=== PATIENT | female | born 1945 | race Caucasian/White ===

== ENCOUNTER 2017-08-19 07:57 | Outpatient (CLI) | payer MEDICARE ==
[~2017-08-19 07:57] MED LIST: ACETAMINOPHEN 325 MG TABLET PO PRN; DIPHENHYDRAMINE HCL 25 MG CAPSULE PO PRN; IRON DEXTRAN COMPLEX 25 MG in SYRINGE, DISPOSABLE, 1 EACH IV PRN; IRON DEXTRAN COMPLEX 975 MG in NORMAL SALINE 1000 ML 1,000 ML IV PRN; NORMAL SALINE 250 ML IV PRN
[2017-08-19] MEDS ORDERED: METHYLPREDNISOLONE INJ 125 MG/2 ML SDV ONE (09:55)
[2017-08-19 10:44] VITALS: BP 144/61
[2017-08-19] MEDS ORDERED: EPINEPHRINE INJ 1 MG/10 ML DISP.SYRIN ONE (14:11)
== END 2017-08-19 09:55 | disposition short-term general hospital (02) ==
LOC: II 07:57 → 5TH 08:00 → II 09:55
PROVIDERS: ATTEND Internal Medicine
PROC: 3E033GC Introduction of Other Therapeutic Substance into Peripheral Vein, Percutaneous Approach (ICD-10-PCS; principal; 2017-08-19)
PROC: 3E033XZ Introduction of Vasopressor into Peripheral Vein, Percutaneous Approach (ICD-10-PCS; 2017-08-19)
PROC: 3E0333Z Introduction of Anti-inflammatory into Peripheral Vein, Percutaneous Approach (ICD-10-PCS; 2017-08-19)
PROC: 5A12012 Performance of Cardiac Output, Single, Manual (ICD-10-PCS; 2017-08-19)
DX: Z76.89 Persons encountering health services in other specified circumstances (principal)
CPT/HCPCS: 96374; 96375; A9270; J0171; J1750; J2930; J3490; 92950; J7030

== ENCOUNTER 2017-08-19 10:05 | Observation (INO) | payer MEDICARE ==
[2017-08-19] MEDS ORDERED: FAMOTIDINE INJ/PF 20 MG/2 ML SDV IV ONE (10:08)
[2017-08-19] MEDS ORDERED: ONDANSETRON HCL INJ/PF 4 MG/2 ML SDV ONE (10:08)
--- NOTE | 2017-08-19 10:16 | ER Document Report ---
ED General - General Stated Complaint: CODE Notes: 71-year-old female with a history of anaphylaxis to multiple substances including different formulations of intravenous iron presents after having an anaphylactic reaction followed by a pulseless electrical activity cardiac arrest on the floor. She got Benadryl 25 mg followed by a test dose of 0.25 mL' s of IV iron in the outpatient infusion center. This resulted in rash hives hypotension unresponsive listens pulselessness. ERNESTO WRIGHT was called she received 1 round of ACLS with 1 mg of intravenous epinephrine, a few minutes of chest compressions and assisted ventilation after which he regained a pulse and consciousness immediately. She complains only of nausea now. She was also given steroids. TRAVEL OUTSIDE OF THE [place] IN LAST 30 DAYS: No - Related Data Allergies/Adverse Reactions: acetaminophen [From Tylenol] Allergy (Verified 08/19/17 08:35) Home Medications: Current Home Medications Metoprolol Tartrate 50 mg PO PRN PRN 08/19/17 [History] Oxycodone HCl 5 mg PO PRN PRN 08/19/17 [History] Prednisone 10 mg PO PRN PRN 08/19/17 [History] Ropinirole HCl [Requip] 5 mg PO QPM 08/19/17 [History] Past Medical History - Social History Smoking Status: Never Smoker Family History: None Review of Systems - Review of Systems Notes: REVIEW OF SYSTEMS GEN: Denies fever, chills, weight loss ENT: Denies sore throat, nasal discharge, ear pain EYES: Denies blurry vision, eye pain, discharge CV: Denies chest pain, palpitations, edema RESP: Denies cough, shortness of breath, wheezing GI: Nausea MSK: Denies joint pain/swelling, edema, SKIN: Denies rash, skin lesions LYMPH: Denies swollen glands/lymph nodes NEURO: Denies headache, focal weakness or numbness, dizziness PSYCH: Denies depression, suicidal or homicidal ideation PHYSICAL EXAMINATION General: In acute distress, tremulous Head: Atraumatic, normocephalic ENT: Mouth normal, oropharynx moist, no exudates or tonsillar enlargement. No swelling of the intraoral structures or neck. No stridor. Normal voice. Eyes: Conjunctiva normal, pupils equal, lids normal Neck: No JVD, supple, no guarding CVS: Normal rate, regular rhythm, no murmurs Resp: Hyperkinetic, good air movement, normal saturation, slightly tachypneic but clear lungs. GI: Nondistended, soft, no tenderness to palpation, no rebound or guarding Ext: No deformities, no edema, normal range of motion in upper and lower ext Back: No CVA or midline TTP Skin: No rash, warm Lymphatic: No lymphadeopathy noted Neuro: Awake, alert. Face symmetric. GCS 15. Physical Exam - Vital signs Vitals: Resp Pulse Ox 23 H 90 L 08/19/17 10:12 08/19/17 10:12 Course - Re-evaluation Re-evalutation: 08/19/17 10:13 71-year-old female presents after anaphylactic reaction leading to PEA arrest. Given her exam now I suspect this was due to hypotension and vasodilation rather than upper airway obstruction given that she has no signs at this time of upper airway obstruction. She has been given everything for anaphylaxis in terms of medications except for Pepcid which I will give. Zofran for nausea. We will check labs to rule out severe anemia or lateral abdomen allergies. She has no chest pain so I do not think a troponin is needed especially if her EKG is normal. We will do a chest x-ray to rule out significant thoracic trauma. Will observe quite carefully in the ED for repeat dosing of epinephrine. Will admit for observation. 08/19/17 10:16 Discussed with patient's family her condition and the plan of care. 08/19/17 10:30 Reassessed at 10:30 AM. Not having chest pain, looks much better. Vitals normal. Spoke with Dr. Conde who will admit. Checking chest x-ray to rule out thoracic trauma and basic labs. 08/19/17 11:41 Reassessed at 11:40 AM. Feeling well. Chest x-ray shows faint left pleural effusion but no obvious thoracic trauma. This could be pre-existing or represent a small traumatic hemothorax, either way patient will not require any interventions given her stability and normal saturation with no chest pain. Labs show expected leukocytosis. EKG is normal. - Vital Signs Vital signs: Temp Pulse Resp BP Pulse Ox 17 106/48 L 100 08/19/17 11:01 08/19/17 11:01 08/19/17 11:01 - Laboratory Result Diagrams: 08/19/17 10:26 12/07/17 10:26 Laboratory results interpreted by me: 08/19/17 08/19/17 10:26 10:26 WBC 14.4 H Hgb 9.3 L Hct 30.4 L MCV 71 L MCH 21.6 L MCHC 30.5 L RDW 27.9 H Plt Count 135 L Monocytes % 1.4 L Absolute Neutrophils 11.2 H Potassium 3.3 L Chloride 111 H Carbon Dioxide 20 L Calcium 8.2 L - Diagnostic Test Radiology reviewed: Image reviewed, Reports reviewed - EKG Interpretation by Me EKG shows normal: Sinus rhythm Rate: Tachycardia Rhythm: NSR - No ST or T-wave changes Critical Care Note - Critical Care Note Total time excluding time spent on procedures (mins): 32 Comments: The above patient is critically ill. Not including procedures, but including direct re-evaluations, speaking with patient and/or consultants, interpreting results, and documenting, I spent the total amount of minute listed listed above on critical care time Discharge - Discharge Clinical Impression: Pulseless electrical activity Anaphylactic reaction Qualifiers: Encounter type: initial encounter Qualified Code(s): T78.2XXA - Anaphylactic shock, unspecified, initial encounter Condition: Fair Disposition: ADMITTED INPATIENT Admitting Provider: Hospitalist Unit Admitted: Telemetry
[2017-08-19 10:42] LABS: ABSOLUTE EOSINOPHILS # (AUTO) 0.1 10^3/uL (0.0-0.6); ABSOLUTE MONOCYTES (AUTO) 0.2 10^3/uL (0.1-1.4); EOSINOPHILS % (AUTO) 0.7 % (0-6); HEMOGLOBIN 9.3 g/dL (12.0-15.5); RED BLOOD COUNT 4.29 10^6/uL (3.72-5.28); WHITE BLOOD COUNT 14.4 10^3/uL (4.0-10.5)
--- NOTE | 2017-08-19 10:44 | RADIOLOGY REPORT (SQ) ---
EXAM DESCRIPTION: CHEST SINGLE VIEW COMPLETED DATE/TIME: 08/19/2017 10:34 am REASON FOR STUDY: CPR, r/o rib fx, contusion COMPARISON: None. EXAM PARAMETERS: NUMBER OF VIEWS: One view. TECHNIQUE: Single frontal radiographic view of the chest acquired. RADIATION DOSE: NA LIMITATIONS: None. FINDINGS: LUNGS AND PLEURA: Indistinct appearance of the left hemidiaphragm with probable small left pleural effusion. No pneumothorax. MEDIASTINUM AND HILAR STRUCTURES: No masses. Contour normal. HEART AND VASCULAR STRUCTURES: Heart normal in size. Normal vasculature. BONES: No acute findings. HARDWARE: None in the chest. OTHER: No other significant finding. IMPRESSION: FAINT LEFT BASILAR ATELECTASIS WITH PROBABLE SMALL LEFT PLEURAL EFFUSION. TECHNICAL DOCUMENTATION: JOB ID: [id number]- All Rights Reserved
[2017-08-19 10:49] LABS: ABSOLUTE BASOPHILS # (AUTO) 0.1 10^3/uL (0.0-0.2); ABSOLUTE LYMPHOCYTES (AUTO) 2.7 10^3/uL (0.5-4.7); ABSOLUTE NEUT (AUTO) 11.2 10^3/uL (1.7-8.2); BASOPHILS % (AUTO) 0.9 % (0-2); HEMATOCRIT 30.4 % (36.0-47.0); HGB HCT DIFFERENCE -2.5; LYMPHOCYTES % (AUTO) 19.1 % (13-45); MEAN CORPUSCULAR HEMOGLOBIN 21.6 pg (27.0-33.4); MEAN CORPUSCULAR HGB CONC 30.5 g/dL (32.0-36.0); MEAN CORPUSCULAR VOLUME 71 fl (80-97); MONOCYTES % (AUTO) 1.4 % (3-13); RED CELL DISTRIBUTION WIDTH 27.9 % (11.5-14.0); SEGMENTED NEUTROPHILS % (AUTO) 77.9 % (42-78)
[2017-08-19 10:55] LABS: ANION GAP 11 (5-19); BLOOD UREA NITROGEN 10 mg/dL (7-20); CALCIUM 8.2 mg/dL (8.4-10.2); CARBON DIOXIDE 20 mmol/L (22-30); CHLORIDE 111 mmol/L (98-107); CREATININE RESULT 0.74 mg/dL (0.52-1.25); GLUCOSE 102 mg/dL (75-110); POTASSIUM 3.3 mmol/L (3.6-5.0); SODIUM 141.9 mmol/L (137-145)
[2017-08-19 11:15] LABS: ANISOCYTOSIS 3+; MICROCYTOSIS 2+; POLYCHROMASIA 1+; TOXIC GRANULATION 1+
[2017-08-19] MEDS ORDERED: MAG HYDROX/AL HYDROX/SIMETH SUSP 30 ML UDCUP PO PRN (11:34)
[2017-08-19] MEDS ORDERED: ALBUTEROL SULFATE 0.083% NEB 2.5 MG/3 ML AMPUL NEB PRN (11:34)
[2017-08-19] MEDS ORDERED: EPINEPHRINE INJ/PF 1 MG/1 ML AMPULE ONE (11:44)
[2017-08-19] MEDS ORDERED: ENOXAPARIN SODIUM INJ 40 MG/0.4 ML DISP.SYRIN SUBCUT ONE (12:30)
[2017-08-19] MEDS ORDERED: DIPHENHYDRAMINE HCL 25 MG CAPSULE PO ONE (12:30)
--- NOTE | 2017-08-19 12:30 | EKG REPORT ---
SEVERITY:- OTHERWISE NORMAL ECG - SINUS TACHYCARDIA : Confirmed by: Elyse Price 19-Aug-2017 12:29:53
--- NOTE | 2017-08-19 12:31 | PDOC H&P ---
History of Present Illness Admission Date/PCP: 08/19/17 10:36 Patient complains of: Shortness of breath History of Present Illness: STEPH FIGUEROA is a 71 year old female with a past medical history significant for anemia, rheumatoid arthritis, chronic pain, and restless leg syndrome. The patient was in our outpatient chemotherapy suite receiving a test dose of iron dextrose when she developed an anaphylactic reaction with a brief loss of consciousness and nonpalpable pulse. A CODE BLUE was called and the patient received chest compressions, epinephrine, Solu-Medrol, and Benadryl. She regained a pulse and consciousness immediately. At this time she reports feeling chilled and shaky. She is referred to the hospitalist service for observation. Past Medical History Medical History: None Cardiac Medical History: Reports: Heart Murmur Pulmonary Medical History: Reports: None EENT Medical History: Reports: None Neurological Medical History: Reports: None Endocrine Medical History: Reports: None Renal/ Medical History: Reports: None Malignancy Medical History: Reports: None GI Medical History: Reports: None Musculoskeltal Medical History: Reports: Arthritis Skin Medical History: Reports: None Psychiatric Medical History: Reports: None Traumatic Medical History: Reports: None Hematology: Reports: Anemia Past Surgical History Past Surgical History: Reports: Appendectomy, Hysterectomy Social History Information Source: Patient Lives with: Spouse/Significant other Smoking Status: Never Smoker Frequency of Alcohol Use: None Hx Recreational Drug Use: No Hx Prescription Drug Abuse: No - Advance Directive Resuscitation Status: Full Code Family History Family History: None Parental Family History Reviewed: Yes Children Family History Reviewed: Yes Sibling(s) Family History Reviewed.: Yes Medication/Allergy Home Medications: Metoprolol Tartrate 50 mg PO PRN PRN 08/19/17 Oxycodone HCl 5 mg PO PRN PRN 08/19/17 Prednisone 10 mg PO PRN PRN 08/19/17 Ropinirole HCl [Requip] 5 mg PO QPM 08/19/17 Allergies/Adverse Reactions: acetaminophen [From Tylenol] Allergy (Verified 08/19/17 08:35) iron dextran complex Allergy (Verified 08/19/17 12:17) Review of Systems Constitutional: PRESENT: chills. ABSENT: fever(s), headache(s), weight gain, weight loss Eyes: ABSENT: visual disturbances Ears: ABSENT: hearing changes Cardiovascular: ABSENT: chest pain, dyspnea on exertion, edema, orthropnea, palpitations Respiratory: ABSENT: cough, hemoptysis Gastrointestinal: ABSENT: abdominal pain, constipation, diarrhea, hematemesis, hematochezia, nausea, vomiting Genitourinary: ABSENT: dysuria, hematuria Musculoskeletal: ABSENT: joint swelling Integumentary: ABSENT: rash, wounds Neurological: PRESENT: tremor(s). ABSENT: abnormal gait, abnormal speech, confusion, dizziness, focal weakness, syncope Psychiatric: ABSENT: anxiety, depression, homidical ideation, suicidal ideation Endocrine: ABSENT: cold intolerance, heat intolerance, polydipsia, polyuria Hematologic/Lymphatic: ABSENT: easy bleeding, easy bruising Physical Exam Vital Signs: Temp Pulse Resp BP Pulse Ox 15 117/50 L 98 08/19/17 11:34 08/19/17 11:34 08/19/17 11:34 Intake & Output 08/18/17 08/19/17 08/20/17 06:59 06:59 06:59 Weight 68.946 kg General appearance: PRESENT: no acute distress, well-developed, well-nourished, other - Overweight Head exam: PRESENT: atraumatic, normocephalic Eye exam: PRESENT: conjunctiva pink, EOMI, PERRLA. ABSENT: scleral icterus Ear exam: PRESENT: normal external ear exam Mouth exam: PRESENT: moist, tongue midline Neck exam: ABSENT: carotid bruit, JVD, lymphadenopathy, thyromegaly Respiratory exam: PRESENT: clear to auscultation german, symmetrical, unlabored. ABSENT: rales, rhonchi, wheezes Cardiovascular exam: PRESENT: RRR, +S1, +S2, tachycardia. ABSENT: diastolic murmur, rubs, systolic murmur Pulses: PRESENT: normal dorsalis pedis pul Vascular exam: PRESENT: normal capillary refill GI/Abdominal exam: PRESENT: normal bowel sounds, soft. ABSENT: distended, guarding, mass, organolmegaly, rebound, tenderness Rectal exam: PRESENT: deferred Extremities exam: PRESENT: full ROM. ABSENT: calf tenderness, clubbing, pedal edema Neurological exam: PRESENT: alert, awake, oriented to person, oriented to place , oriented to time, oriented to situation, CN II-XII grossly intact. ABSENT: motor sensory deficit Psychiatric exam: PRESENT: appropriate affect, normal mood. ABSENT: homicidal ideation, suicidal ideation Skin exam: PRESENT: dry, intact, warm. ABSENT: cyanosis, rash Results Impressions: Chest X-Ray 08/19/17 10:16 IMPRESSION: FAINT LEFT BASILAR ATELECTASIS WITH PROBABLE SMALL LEFT PLEURAL EFFUSION. Assessment & Plan - Diagnosis (1) Anaphylactic reaction Qualifiers: Encounter type: initial encounter Qualified Code(s): T78.2XXA - Anaphylactic shock, unspecified, initial encounter Is this a current diagnosis for this admission?: Yes Plan: Pt previously received Solumedrol 125 mg IV, Epinephrine 1 mg IV, Benadryl 25 mg p.o. she is currently hemodynamically stable with no signs of respiratory distress. The patient will be admitted for observation with continuous cardiac telemetry. She will be placed on scheduled Benadryl and Pepcid. (2) Nonpalpable pulse Is this a current diagnosis for this admission?: Yes Plan: Secondary to hypotension and vasodialation during an anaphylactic reaction. She was not on cardiac monitoring during the initial event. The patient immediately regained palpable pulse, consciousness, and maintained her own airway following administration of epinephrine and a short round of chest compressions. BP remains slightly low, though acceptable: 117/50. Will provide IVF an place patient on fall precautions. Will continue scheduled Pepcid and Benadryl. (3) Hypotension Qualifiers: Hypotension type: hypotension due to drug Qualified Code(s): I95.2 - Hypotension due to drugs Is this a current diagnosis for this admission?: Yes Plan: As above. (4) Anemia Qualifiers: Anemia type: iron deficiency Is this a current diagnosis for this admission?: Yes Plan: The patient was in our outpatient chemotherapy suite to receive test dosing of iron dextrose for anemia. She reports that she has had 3 previous blood transfusions within the last 3-4 months due to her anemia. She has been referred to Dr. Davila by her primary care provider. Hgb is current 9.3. No signs of overt bleeding. Dr. Davila has been updated on the patient's status. - Time Time Spent: 50 to 70 Minutes Medications reviewed and adjusted accordingly: Yes Anticipated discharge: Home Within: within 24 hours
[2017-08-19] MEDS: OXYCODONE HCL IR 5 MG TABLET PO PRN ×2 (13:10→19:39)
[2017-08-19] MEDS: NORMAL SALINE 1000 ML 1,000 ML IV PRN (13:11)
[2017-08-19] MEDS: DIPHENHYDRAMINE HCL 25 MG CAPSULE PO SCH (17:23)
[2017-08-19] MEDS ORDERED: ROPINIROLE HCL 2 MG TABLET PO SCH (18:00)
[2017-08-19] MEDS ORDERED: ROPINIROLE HCL 5 MG PO SCH (18:00)
[2017-08-19] MEDS: FAMOTIDINE 20 MG TABLET PO SCH (21:25)
[2017-08-19] MEDS: ONDANSETRON HCL INJ/PF 4 MG/2 ML SDV IV PRN (21:25)
[2017-08-20] MEDS: DIPHENHYDRAMINE HCL 25 MG CAPSULE PO SCH ×2 (00:11→06:28)
[2017-08-20] MEDS: NORMAL SALINE 1000 ML 1,000 ML IV PRN (02:24)
[2017-08-20] MEDS: OXYCODONE HCL IR 5 MG TABLET PO PRN (06:32)
[2017-08-20 07:31] LABS: HEMATOCRIT 23.9 % (36.0-47.0); MEAN CORPUSCULAR HEMOGLOBIN 21.4 pg (27.0-33.4); MEAN CORPUSCULAR HGB CONC 30.7 g/dL (32.0-36.0); MEAN CORPUSCULAR VOLUME 70 fl (80-97); RED BLOOD COUNT 3.43 10^6/uL (3.72-5.28); RED CELL DISTRIBUTION WIDTH 27.7 % (11.5-14.0); WHITE BLOOD COUNT 17.4 10^3/uL (4.0-10.5)
[2017-08-20 07:38] LABS: HEMOGLOBIN 7.3 g/dL (12.0-15.5)
[2017-08-20] MEDS: ONDANSETRON HCL INJ/PF 4 MG/2 ML SDV IV PRN (07:51)
[2017-08-20 07:53] LABS: ANION GAP 9 (5-19); BLOOD UREA NITROGEN 13 mg/dL (7-20); CALCIUM 7.8 mg/dL (8.4-10.2); CARBON DIOXIDE 22 mmol/L (22-30); CHLORIDE 107 mmol/L (98-107); CREATINE KINASE 31 U/L (30-135); CREATININE RESULT 0.68 mg/dL (0.52-1.25); GLUCOSE 107 mg/dL (75-110); POTASSIUM 3.9 mmol/L (3.6-5.0)
[2017-08-20] MEDS ORDERED: DIPHENHYDRAMINE HCL 25 MG CAPSULE PO PRN (09:12)
[2017-08-20] MEDS ORDERED: NORMAL SALINE 250 ML IV PRN ×2 (09:12)
[2017-08-20] MEDS ORDERED: ENOXAPARIN SODIUM INJ 40 MG/0.4 ML DISP.SYRIN SUBCUT SCH (10:00)
[2017-08-20] MEDS ORDERED: OXYCODONE HCL IR 5 MG TABLET PO PRN (10:23)
[2017-08-20] MEDS: FAMOTIDINE 20 MG TABLET PO SCH (10:39)
[2017-08-20] MEDS ORDERED: POTASSIUM CHLORIDE 10 MEQ TABLET.SA PO ONE (11:30)
--- NOTE | 2017-08-20 12:43 | PDOC DISCHARGE SUMMARY ---
General - Admit/Disc Date/PCP Admission Date/Primary Care Provider: 08/19/17 10:36 Discharge Date: 08/20/17 - Discharge Diagnosis (1) Anaphylactic reaction Is this a current diagnosis for this admission?: Yes Summary: The patient was admitted overnight for observation after an anaphylactic reaction had to iron dextrose. She was immediately treated with epinephrine, Solu-Medrol, and Benadryl with rapid improvement in her respiratory status and hypotension. She was placed on scheduled Benadryl and Pepcid overnight. She did not experience any dyspnea or hypotensive episodes overnight. The patient's design transferrer, Dr. Davila, was updated on the patient's status. The patient will follow up with Dr. Davila next week as scheduled. (2) Anemia Is this a current diagnosis for this admission?: Yes Summary: The patient was in our outpatient chemotherapy suite to receive a test dose of iron dextran for anemia when she had the anaphylactic reaction. The patient states that she has had 3 previous blood transfusions within the last 3-4 months due to her anemia. She is followed by hematology, Dr. Davila, for the same. Her hemoglobin yesterday was noted to be 9.3 and has since dropped to 7.3. Dr. Carrillo was contacted and recommended that the patient received 2 units of packed red blood cells prior to discharge today. The patient will follow up with hematology as scheduled next week. (3) Chest wall pain Is this a current diagnosis for this admission?: Yes Summary: Secondary to chest compressions. Unfortunately the patient is allergic to Tylenol and NSAIDs are contraindicated related to her anemia. She is on chronic oxycodone therapy. She was provided a short prescription for increased dosing of oxycodone; 10 mg p.o. every 6 hours as needed #20. (4) Rheumatoid arthritis flare Is this a current diagnosis for this admission?: Yes Summary: The patient states that she is occasionally provided prednisone for RA flares. Today she is noted to have increased edema and tenderness to the small joints of bilateral hands, likely related to stress incident yesterday. She will be discharged with a short prescription for prednisone. Follow-up with her primary care provider. (5) Nonpalpable pulse Is this a current diagnosis for this admission?: Yes Summary: During the anaphylactic reaction, the patient had a nonpalpable pulse presumed to be related to hypotension. Chest compressions were briefly initiated with immediate return of consciousness. The patient was then provided epinephrine, Solu-Medrol, Benadryl, and Pepcid. Vital signs have remained stable throughout the remainder of her observational stay. (6) Hypotension Is this a current diagnosis for this admission?: Yes Summary: Secondary to anaphylactic reaction. Now resolved. - Additional Information Resuscitation Status: Full Code Discharge Diet: Regular Discharge Activity: Activity As Tolerated, Balance Activity w/Rest Home Medications: Metoprolol Tartrate 50 mg PO DAILYP PRN 08/19/17 Estradiol [Kyra] 1 each TD ASDIR PRN 08/20/17 Furosemide [Lasix 20 mg Tablet] 20 mg PO QAM 08/20/17 Gabapentin [Neurontin 300 mg Capsule] 300 mg PO HSP PRN 08/20/17 Oxycodone HCl [Oxy-Ir 5 mg Tablet] 10 mg PO Q6HP PRN #20 tablet 08/20/17 Prednisone [Deltasone 20 mg Tablet] 20 mg PO DAILY #7 tablet 08/20/17 Rizatriptan Benzoate [Maxalt] 10 mg PO ASDIR PRN 08/20/17 Ropinirole HCl [Requip 0.25 Mg Tablet] 0.25 mg PO QHS 08/20/17 History of Present Illness History of Present Illness: STEPH FIGUEROA is a 71 year old female with a past medical history significant for anemia, rheumatoid arthritis, chronic pain, and restless leg syndrome. The patient was in our outpatient chemotherapy suite receiving a test dose of iron dextrose when she developed an anaphylactic reaction with a brief loss of consciousness and nonpalpable pulse. A CODE BLUE was called and the patient received chest compressions, epinephrine, Solu-Medrol, and Benadryl. She regained a pulse and consciousness immediately. At this time she reports feeling chilled and shaky. She is referred to the hospitalist service for observation. Physical Exam Vital Signs: Temp Pulse Resp BP Pulse Ox 98.3 F 76 18 104/55 L 95 08/20/17 07:28 08/20/17 07:28 08/20/17 07:28 08/20/17 07:28 08/20/17 07:28 Intake & Output 08/19/17 08/20/17 08/21/17 06:59 06:59 06:59 Intake Total 459 Balance 459 Weight 80 kg General appearance: PRESENT: no acute distress, well-developed, well-nourished, other - Overweight Head exam: PRESENT: atraumatic, normocephalic Eye exam: PRESENT: conjunctiva pink, EOMI, PERRLA. ABSENT: scleral icterus Ear exam: PRESENT: normal external ear exam Mouth exam: PRESENT: moist, tongue midline Neck exam: ABSENT: carotid bruit, JVD, lymphadenopathy, thyromegaly Respiratory exam: PRESENT: chest wall tenderness, clear to auscultation german, symmetrical, unlabored. ABSENT: rales, rhonchi, wheezes Cardiovascular exam: PRESENT: RRR, +S1, +S2. ABSENT: diastolic murmur, rubs, systolic murmur Pulses: PRESENT: normal dorsalis pedis pul Vascular exam: PRESENT: normal capillary refill GI/Abdominal exam: PRESENT: normal bowel sounds, soft. ABSENT: distended, guarding, mass, organolmegaly, rebound, tenderness Rectal exam: PRESENT: deferred Extremities exam: PRESENT: full ROM, other - Edema of the small joints to bilateral hands. ABSENT: calf tenderness, clubbing, pedal edema Neurological exam: PRESENT: alert, awake, oriented to person, oriented to place , oriented to time, oriented to situation, CN II-XII grossly intact. ABSENT: motor sensory deficit Psychiatric exam: PRESENT: appropriate affect, normal mood. ABSENT: homicidal ideation, suicidal ideation Skin exam: PRESENT: dry, intact, pallor, warm. ABSENT: cyanosis, rash Results Laboratory Results: 08/20/17 06:50 08/20/17 06:50 08/20/17 08/20/17 08/20/17 06:50 06:50 09:45 WBC 17.4 H RBC 3.43 L Hgb 7.3 L Hct 23.9 L MCV 70 L MCH 21.4 L MCHC 30.7 L RDW 27.7 H Plt Count 190 Retic Count (auto) 2.91 H Absolute Retic 0.100 Sodium 138.0 Potassium 3.9 Chloride 107 Carbon Dioxide 22 Anion Gap 9 BUN 13 Creatinine 0.68 Est GFR ( Amer) > 60 Est GFR (Non-Af Amer) > 60 Glucose 107 Calcium 7.8 L Iron < 10.1 L TIBC 335 % Saturation UNABLE TO CALCULATE Ferritin 14.70 Vitamin B12 740.0 Folate 10.40 Blood Type O NEGATIVE Antibody Screen NEGATIVE 08/20/17 06:50 Creatine Kinase 31 Impressions: Chest X-Ray 08/19/17 10:16 IMPRESSION: FAINT LEFT BASILAR ATELECTASIS WITH PROBABLE SMALL LEFT PLEURAL EFFUSION. Qualifiers PATEINT BEING DISCHARGED WITH ANY OF THE FOLLOWING DIAGNOSIS?: No Plan Discharge Plan: Patient to be discharged home with self care. Will follow up with hematology as scheduled next week. Recommend that she follow-up with her primary care provider within 1-2 weeks.
[2017-08-20] MEDS ORDERED: PREDNISONE 20 MG TABLET PO ONE (14:15)
[2017-08-20 19:56] LABS: HEMATOCRIT 32.3 % (36.0-47.0); HGB HCT DIFFERENCE -1.7; MEAN CORPUSCULAR HEMOGLOBIN 23.2 pg (27.0-33.4); MEAN CORPUSCULAR HGB CONC 31.5 g/dL (32.0-36.0); RED BLOOD COUNT 4.38 10^6/uL (3.72-5.28); RED CELL DISTRIBUTION WIDTH 27.9 % (11.5-14.0); WHITE BLOOD COUNT 16.5 10^3/uL (4.0-10.5)
[2017-08-20 20:31] LABS: BASOPHILS % (MANUAL) 0 % (0-2); EOSINOPHILS % (MANUAL) 0 % (0-6); LYMPHOCYTES % (MANUAL) 2 % (13-45); TOTAL CELLS COUNTED 100
[2017-08-20 20:32] LABS: ANISOCYTOSIS 3+; MICROCYTOSIS 1+; POLYCHROMASIA SLIGHT
[2017-08-20 20:33] LABS: HYPOCHROMASIA 1+; OVALOCYTES SLIGHT; POIKILOCYTOSIS SLIGHT
[2017-08-20 20:35] LABS: HEMOGLOBIN 10.2 g/dL (12.0-15.5)
[2017-08-20 20:36] LABS: MEAN CORPUSCULAR VOLUME 74 fl (80-97)
[2017-08-20 21:03] VITALS: BP 143/71
[2017-08-21] MEDS ORDERED: PREDNISONE 20 MG TABLET PO SCH (10:00)
== END 2017-08-20 21:15 | disposition home or self-care (01) ==
LOC: ER 10:05 → INTOOBSV 10:36 → EH 10:36 → UNDODISIN 11:15 → 5 12:05
PROVIDERS: ADMIT Internal Medicine; ATTEND Internal Medicine
PROC: 5A12012 Performance of Cardiac Output, Single, Manual (ICD-10-PCS; principal; 2017-08-19)
PROC: 30233N1 Transfusion of Nonautologous Red Blood Cells into Peripheral Vein, Percutaneous Approach (ICD-10-PCS; 2017-08-20)
DX: T88.6XXA Anaphylactic reaction due to adverse effect of correct drug or medicament properly administered, initial encounter (principal); I95.2 Hypotension due to drugs; R09.89 Other specified symptoms and signs involving the circulatory and respiratory systems; T45.4X5A Adverse effect of iron and its compounds, initial encounter; Y84.8 Other medical procedures as the cause of abnormal reaction of the patient, or of later complication, without mention of misadventure at the time of the procedure; Y92.538 Other ambulatory health services establishments as the place of occurrence of the external cause; D50.9 Iron deficiency anemia, unspecified; R07.89 Other chest pain; M06.9 Rheumatoid arthritis, unspecified; G89.29 Other chronic pain; R11.0 Nausea; R25.1 Tremor, unspecified; R68.83 Chills (without fever); J90 Pleural effusion, not elsewhere classified; G25.81 Restless legs syndrome; Z88.6 Allergy status to analgesic agent; Z88.8 Allergy status to other drugs, medicaments and biological substances; Z79.891 Long term (current) use of opiate analgesic; Z79.899 Other long term (current) drug therapy; Z90.49 Acquired absence of other specified parts of digestive tract
CPT/HCPCS: 93005; 99291; 92950; 96374; 96375; 86900; 86901; 36415 ×2; 36430; 86850; 82607; 82550; 82728; 82746; 83540; 83550; 85025 ×2; 85027; 85045; 80048 ×2; 84466; 86920; 71010; 93010; G0378 ×3; P9016; A9270 ×8; J1650 ×2; J2405 ×2; J7030 ×2; S0028; J7512